=== PATIENT | male | born 1960 | race Two or more races ===

== ENCOUNTER 2018-12-05 15:38 | Inpatient (IN) | payer SELFPAY ==
[~2018-12-05] VITALS: Ht 185.4 cm; Wt 110.1 kg
[2018-12-05 19:51] LABS: Hemoglobin 8.4 g/dL (13.5-17.5); White Blood Cell 10.8 10^3/uL (4.4-10.8)
[2018-12-05 19:52] LABS: Basophils # (auto) 0.1 uL; Basophils % (auto) 1.2 % (0.0-2.0); Eosinophils # (auto) 0.7 uL; Eosinophils % (auto) 6.3 % (0.0-7.0); Hematocrit 28.3 % (41.0-53.0); Lymphocytes # (auto) 1.3 uL; Lymphocytes % (auto) 11.8 % (10.0-50.0); Mean Corpuscular Hemoglobin 19.1 pg (28.0-32.0); Mean Corpuscular Hgb Conc. 29.7 g/dL (32.0-36.0); Mean Corpuscular Volume 64.4 fL (80.0-100.0); Monocytes # (auto) 1.4 uL; Monocytes % (auto) 12.9 % (0.0-12.0); Neutrophils # (auto) 7.3 uL; Neutrophils % (auto) 67.8 % (37.0-80.0); Platelet Count (auto) 412 10^3/uL (140-450)
[2018-12-05 19:57] LABS: Red Cell Distribution Width 25.2 % (11.8-14.3)
[2018-12-05 20:02] LABS: INR 0.96 (0.9-1.15); Partial Thromboplastin Time 25.7 sec (23.78-33.04); Prothrombin Time 10.3 sec (9.27-12.13)
[2018-12-05 20:07] LABS: Albumin 3.3 g/dL (3.4-5.0); Calcium 8.8 mg/dL (8.5-10.1); Potassium 4.2 mmol/L (3.5-5.1)
[2018-12-05 20:11] LABS: BUN/Creatinine Ratio 22.3; Bilirubin, Total 0.7 mg/dL (0.2-1.0); Total Protein 8.2 g/dL (6.4-8.2)
[2018-12-05] MEDS ORDERED: IOHEXOL 350 MG/ML 100ML IJ ONE (22:12)
[2018-12-05] MEDS ORDERED: HYDROcodone-ACET 5/325MG TAB PO PRN (23:30)
[2018-12-05] MEDS ORDERED: ONDANSETRON HCL 4 MG/2 ML VIAL IV PRN (23:30)
[2018-12-05] MEDS ORDERED: TEMAZEPAM 15 MG CAP PO PRN (23:30)
[2018-12-05] MEDS ORDERED: cloNIDine HCL 0.1 MG TAB PO ONE (23:30)
[2018-12-06] MEDS ORDERED: MORPHINE SULFATE 4 MG/ML SYR/VIAL IV PRN ×2 (00:30)
[2018-12-06] MEDS ORDERED: NITROGLYCERIN 0.4 MG SL TAB SL PRN (00:30)
[2018-12-06] MEDS ORDERED: METOPROLOL TARTRATE 25 MG TAB PO ONE (03:00)
--- NOTE | 2018-12-06 07:50 | NUR ---
Telemetry admit from ER JAVYDAYANNA admitted to Telemetry unit Room 281A. No report received. Patient oriented to Adenike Pruitt, RN primary RN, unit, room, bed, and unit policies regarding patient care and visiting hours. Patient now on continuous telemetry monitoring, tele box #[id number] and telemetry reading on arrival to unit is SR 88. Patient placed on bedside oxygen, weighed by bedscale and encouraged to call if they need something. All questions and concerns addressed, patient verbalized understanding. Note:
--- NOTE | 2018-12-06 08:00 | NUR ---
PCP PATIENT STATED HE DOES NOT HAVE A PCP, PATIENT PROVIDED WITH CONTINUUM OF PICTURE COPYIST CARD AND ENCOURAGED TO CALL HER FOR ASSISTANCE IN ARRANGING NEW PCP.
[2018-12-06 08:13] LABS: Basophils # (auto) 0.2 uL
[2018-12-06 08:17] LABS: Basophils % (auto) 1.9 % (0.0-2.0); Eosinophils # (auto) 0.5 uL; Eosinophils % (auto) 6.4 % (0.0-7.0); Hematocrit 27.3 % (41.0-53.0); Hemoglobin 8.1 g/dL (13.5-17.5); Lymphocytes # (auto) 0.8 uL; Lymphocytes % (auto) 10.1 % (10.0-50.0); Mean Corpuscular Hemoglobin 19.3 pg (28.0-32.0); Mean Corpuscular Hgb Conc. 29.9 g/dL (32.0-36.0); Mean Corpuscular Volume 64.7 fL (80.0-100.0); Monocytes % (auto) 11.9 % (0.0-12.0); Neutrophils # (auto) 5.8 uL; Neutrophils % (auto) 69.7 % (37.0-80.0); Platelet Count (auto) 379 10^3/uL (140-450); Red Blood Cells 4.21 10^6/uL (4.5-5.90); White Blood Cell 8.3 10^3/uL (4.4-10.8)
[2018-12-06 08:24] LABS: Red Cell Distribution Width 24.2 % (11.8-14.3)
[2018-12-06 08:28] LABS: Potassium 4.1 mmol/L (3.5-5.1)
[2018-12-06 08:33] LABS: BUN/Creatinine Ratio 21.4; Calcium 8.7 mg/dL (8.5-10.1)
[2018-12-06 09:12] VITALS: BP 152/98
[2018-12-06 09:17] LABS: INR 0.98 (0.9-1.15); Partial Thromboplastin Time 25.1 sec (23.78-33.04); Prothrombin Time 10.5 sec (9.27-12.13)
[2018-12-06] MEDS: PANTOPRAZOLE 40 MG TAB PO SCH (09:42)
[2018-12-06] MEDS: METOPROLOL TARTRATE 25 MG TAB PO SCH ×2 (09:42→22:30)
[2018-12-06 12:22] VITALS: BP 147/105
--- NOTE | 2018-12-06 12:44 | NUR ---
Received call from CT that CT chest was ordered by Dr. Valerie Hill. CT can't be done until Saturday as the patient had A test with contrast on 12/05. Dr. Hill informed.
[2018-12-06 16:16] VITALS: BP 149/88
[2018-12-06] MEDS ORDERED: WARFARIN SODIUM 2.5 MG TAB PO ONE (17:00)
[2018-12-06 22:00] VITALS: BP 158/95
[2018-12-07] MEDS: ACETAMINOPHEN 500 MG TAB PO PRN ×2 (01:57→16:48)
[2018-12-07 05:00] VITALS: BP 135/93
[2018-12-07 05:51] LABS: Basophils # (auto) 0.2 uL; Eosinophils # (auto) 0.5 uL; Eosinophils % (auto) 6.6 % (0.0-7.0); Hemoglobin 7.6 g/dL (13.5-17.5); Mean Corpuscular Volume 65.4 fL (80.0-100.0); Monocytes # (auto) 0.9 uL; Monocytes % (auto) 11.1 % (0.0-12.0); White Blood Cell 8.2 10^3/uL (4.4-10.8)
[2018-12-07 05:54] LABS: Basophils % (auto) 2.3 % (0.0-2.0); Hematocrit 25.2 % (41.0-53.0); Lymphocytes # (auto) 0.9 uL; Lymphocytes % (auto) 11.6 % (10.0-50.0); Mean Corpuscular Hemoglobin 19.8 pg (28.0-32.0); Mean Corpuscular Hgb Conc. 30.3 g/dL (32.0-36.0); Neutrophils # (auto) 5.6 uL; Neutrophils % (auto) 68.4 % (37.0-80.0); Platelet Count (auto) 383 10^3/uL (140-450); Red Blood Cells 3.86 10^6/uL (4.5-5.90)
[2018-12-07 05:55] LABS: INR 1.01 (0.9-1.15); Prothrombin Time 10.8 sec (9.27-12.13)
[2018-12-07 05:58] LABS: Red Cell Distribution Width 24.6 % (11.8-14.3)
[2018-12-07 06:06] LABS: Albumin 2.9 g/dL (3.4-5.0); Calcium 8.5 mg/dL (8.5-10.1); Potassium 3.9 mmol/L (3.5-5.1)
[2018-12-07 06:11] LABS: % Iron Saturation 4.7 % (20-55)
[2018-12-07 06:12] LABS: BUN/Creatinine Ratio 18.6; Bilirubin, Total 0.7 mg/dL (0.2-1.0); Total Protein 7.2 g/dL (6.4-8.2)
--- NOTE | 2018-12-07 07:20 | NUR ---
Opening Shift Note Received report from Steve SULLIVAN. Assumed care of patient, awake and alert. No S/S of distress/SOB or pain. Reported pain on right leg when touch. Noted right leg swollen, warm to touch, palpable pulses on dorsalis pedis. Instructed on POC and to call for assist PRN, will continue to monitor for changes Q1hr and PRN.
[2018-12-07 08:00] VITALS: BP 150/81
[2018-12-07] MEDS: PANTOPRAZOLE 40 MG TAB PO SCH (08:22)
[2018-12-07] MEDS: SODIUM FERR GLUC 62.5MG/5ML 125 MG in SODIUM CHL 0.9% 100 ML IV SCH (09:25)
[2018-12-07] MEDS: METOPROLOL TARTRATE 25 MG TAB PO SCH ×2 (09:26→21:45)
[2018-12-07 12:00] VITALS: BP 145/92
--- NOTE | 2018-12-07 13:00 | NUR ---
COVERING NURSE LUIS F INFORMED PRIMARY NURSE THAT DR. Stacey CERVANTES WANTS THE PATIENT TO TRANSFER TO HIGHER LEVEL OF CARE AT [facility]. INFORMED ON-CALL WATCH AND CLOCK REPAIRER BY PHONE AND SAID THAT THEY WILL WORK ON IT TOMORROW.
[2018-12-07 16:00] VITALS: BP 118/77
--- NOTE | 2018-12-07 16:00 | NUR ---
DR. Zavala N at bedside. GI consult done. Received verbal order to have patient on CT guided biopsy tomorrow of liver mass. Npo after midnight, check for CBC and PTPTT as protocol.
[2018-12-07] MEDS ORDERED: WARFARIN SODIUM 2.5 MG TAB PO ONE (17:00)
[2018-12-07 18:24] LABS: INR 1.02 (0.9-1.15); Prothrombin Time 10.9 sec (9.27-12.13)
[2018-12-07 22:00] VITALS: BP 148/96
[2018-12-08] MEDS: ACETAMINOPHEN 500 MG TAB PO PRN ×3 (03:25→22:24)
[2018-12-08 05:36] VITALS: BP 151/81
[2018-12-08 06:00] LABS: INR 1.06 (0.9-1.15); Prothrombin Time 11.3 sec (9.27-12.13)
[2018-12-08 06:06] LABS: Albumin 2.7 g/dL (3.4-5.0); BUN/Creatinine Ratio 16.3; Calcium 8.3 mg/dL (8.5-10.1); Potassium 4.1 mmol/L (3.5-5.1)
[2018-12-08 06:09] LABS: Basophils # (auto) 0.2 uL; Basophils % (auto) 2.2 % (0.0-2.0); Bilirubin, Total 0.6 mg/dL (0.2-1.0); Eosinophils # (auto) 0.6 uL; Hematocrit 25.6 % (41.0-53.0); Hemoglobin 7.7 g/dL (13.5-17.5); Lymphocytes # (auto) 0.9 uL; Neutrophils # (auto) 5.7 uL; Total Protein 7.2 g/dL (6.4-8.2)
[2018-12-08 06:12] LABS: Eosinophils % (auto) 7.2 % (0.0-7.0); Lymphocytes % (auto) 10.4 % (10.0-50.0); Mean Corpuscular Hemoglobin 19.5 pg (28.0-32.0); Mean Corpuscular Volume 65.1 fL (80.0-100.0); Monocytes % (auto) 12.5 % (0.0-12.0); Neutrophils % (auto) 67.7 % (37.0-80.0); Platelet Count (auto) 402 10^3/uL (140-450); Red Blood Cells 3.93 10^6/uL (4.5-5.90); White Blood Cell 8.4 10^3/uL (4.4-10.8)
[2018-12-08 06:13] LABS: Red Cell Distribution Width 24.9 % (11.8-14.3)
--- NOTE | 2018-12-08 07:25 | NUR ---
Opening Shift Note Received report from Steve SULLIVAN. Assumed care of patient, awake and alert. No S/S of distress/SOB or pain. REported pain on right lower leg when touched. Instructed on POC and to call for assist PRN, will continue to monitor for changes Q1hr and PRN.
[2018-12-08] MEDS: PANTOPRAZOLE 40 MG TAB PO SCH (07:52)
[2018-12-08 08:00] VITALS: BP 149/105
--- NOTE | 2018-12-08 08:29 | NUR ---
CALLED CT AND SAID THAT THEY WILL DO THE BIOPSY TODAY, NO DEFINITE TIME YET. PATIENT MADE AWARE AND VERBALIZED UNDERSTANDING.
[2018-12-08 08:46] VITALS: BP 149/105
[2018-12-08] MEDS: METOPROLOL TARTRATE 25 MG TAB PO SCH ×2 (09:19→21:30)
[2018-12-08] MEDS ORDERED: IOHEXOL 300 MG/ML 100ML BOTTLE IJ ONE (09:30)
--- NOTE | 2018-12-08 09:32 | NUR ---
SPOKE WITH [facility] MCDANIEL TO REQUEST INTERVIEW WITH PATIENT FOR POSSIBLE [facility] APPLICATION. [facility] WILL SPEAK WITH PATIENT TODAY. SPOKE WITH MEGGAN SULLIVAN TO INFORM HER THAT PATIENT HAS NO INSURANCE AND TO PLEASE SPEAK WITH PHYSICIAN WHEN ROUNDS ARE MADE AND MAKE THEM AWARE OF THAT. TRANSFER TO HIGHER LEVEL WILL BE DIFFICULT. Addendum: 12/08/18 at 1427 by Rock Dumont RN PER [facility] PATIENT IS MEDI-[facility] PENDING
[2018-12-08 10:03] LABS: Hepatitis B Surface Antibody Negative
[2018-12-08 10:08] LABS: Folate (Folic Acid) 17.92 ng/mL (5.38-24)
[2018-12-08 10:35] LABS: Hepatitis A Total Antibody Negative
[2018-12-08 11:28] LABS: Hepatitis B Core Total AB Negative; Hepatitis C Antibody Negative (Negative)
[2018-12-08 11:29] LABS: Hepatitis B Surface Antigen Negative (Negative)
--- NOTE | 2018-12-08 11:38 | NUR ---
PATIENT ASSISTED TO CT FOR BIOPSY, TAKEN BY BED.
--- NOTE | 2018-12-08 11:45 | NUR ---
[facility] WILL HOLD THIS TIME, PATIENT STILL AT CT.
[2018-12-08] MEDS ORDERED: LIDOCAINE 2% (LOCAL ANESTH.) PF 5ml SDV ONE (12:27)
--- NOTE | 2018-12-08 12:49 | NUR ---
CAN'T ASSESS, PATIENT STILL AT RADIOLOGY. Addendum: 12/08/18 at 1249 by ELAINE ORDONEZ RN Amended: Links added.
--- NOTE | 2018-12-08 13:00 | NUR ---
PT NOT IN ROOM DURING 1300 VITALS . UNABLE TO OBTAIN.
[2018-12-08] MEDS ORDERED: MIDAZOLAM HCL 1MG/1ML-2 ML VIAL ONE (13:44)
[2018-12-08] MEDS ORDERED: fentaNYL CITRATE 100 MCG/2 ML VL ONE (13:44)
[2018-12-08] MEDS: SODIUM FERR GLUC 62.5MG/5ML 125 MG in SODIUM CHL 0.9% 100 ML IV SCH (16:20)
[2018-12-08 17:00] VITALS: BP 153/88
[2018-12-08] MEDS ORDERED: WARFARIN SODIUM 2.5 MG TAB PO ONE (17:00)
--- NOTE | 2018-12-08 19:30 | NUR ---
Opening Shift Note Assumed care of patient, awake and alert. No S/S of distress/SOB or pain. Instructed on POC and to call for assist when needed. Pt has a 20ga IV in the right forearm that flushes without discomfort. Pt currently laying in bed with the rails up x2, bed is locked in the lowest position and the call light is within reach. Will continue to monitor.
[2018-12-08 21:56] VITALS: BP 146/85
--- NOTE | 2018-12-09 01:15 | NUR ---
IV insertion IV access obtained, via clean sterile technique by inserting 20 gauge catheter in the left forearm after 1 attempt. IV secured properly. No trauma to site. Patient tolerated procedure well.
[2018-12-09 04:58] VITALS: BP 154/94
[2018-12-09 06:16] LABS: Eosinophils # (auto) 0.5 uL; Eosinophils % (auto) 6.9 % (0.0-7.0); Hematocrit 25.7 % (41.0-53.0); Lymphocytes # (auto) 0.8 uL
[2018-12-09 06:20] LABS: Basophils # (auto) 0.1 uL; Basophils % (auto) 1.8 % (0.0-2.0); Hemoglobin 7.7 g/dL (13.5-17.5); Lymphocytes % (auto) 10.8 % (10.0-50.0); Mean Corpuscular Hemoglobin 19.6 pg (28.0-32.0); Mean Corpuscular Hgb Conc. 29.7 g/dL (32.0-36.0); Mean Corpuscular Volume 65.9 fL (80.0-100.0); Monocytes # (auto) 0.8 uL; Monocytes % (auto) 11.3 % (0.0-12.0); Neutrophils % (auto) 69.2 % (37.0-80.0); Nucleated Red Blood Cells % 0.1 %; Platelet Count (auto) 359 10^3/uL (140-450); White Blood Cell 7.2 10^3/uL (4.4-10.8)
[2018-12-09] MEDS: ACETAMINOPHEN 500 MG TAB PO PRN ×2 (06:26→17:52)
[2018-12-09 06:36] LABS: INR 1.1 (0.9-1.15); Prothrombin Time 11.7 sec (9.27-12.13); Red Cell Distribution Width 25.1 % (11.8-14.3)
[2018-12-09 06:37] LABS: Potassium 4.1 mmol/L (3.5-5.1)
[2018-12-09 06:44] LABS: BUN/Creatinine Ratio 17.6; Bilirubin, Total 0.7 mg/dL (0.2-1.0); Calcium 8.2 mg/dL (8.5-10.1)
[2018-12-09 06:47] LABS: Albumin 2.7 g/dL (3.4-5.0)
[2018-12-09 08:00] VITALS: BP 145/92
[2018-12-09] MEDS: PANTOPRAZOLE 40 MG TAB PO SCH (08:48)
[2018-12-09 08:55] LABS: Urine Bacteria NONE SEEN /hpf (None Seen); Urine Blood Negative /uL (Negative); Urine Specific Gravity 1.017 (1.001-1.035); Urine WBC 3 /hpf (0 - 3)
[2018-12-09 09:00] VITALS: BP 145/92
[2018-12-09] MEDS: METOPROLOL TARTRATE 25 MG TAB PO SCH ×2 (10:00→22:42)
[2018-12-09 13:00] VITALS: BP 138/95
--- NOTE | 2018-12-09 15:17 | NUR ---
Nutrition Assessment Notes please see attached link for complete assessment Est. Needs ABW [id number] kcal (23-25 kcal/kgBW), 96-105 gms pro (1.0-1.1 gms/kgBW). Will continue to monitor pertinent labs and reassess nutrient needs prn Addendum: 12/09/18 at [address] Amended: Links added.
[2018-12-09 17:00] VITALS: BP 121/80
[2018-12-09] MEDS ORDERED: WARFARIN SODIUM 10 MG TAB PO ONE (17:00)
[2018-12-09] MEDS: SODIUM FERR GLUC 62.5MG/5ML 125 MG in SODIUM CHL 0.9% 100 ML IV SCH (17:13)
--- NOTE | 2018-12-09 19:15 | NUR ---
OPENING SHIFT NOTE ASSUMED CARE OF PATIENT FROM DEANDRE SULLIVAN. PATIENT IS RESTING IN BED WITH EVEN AND UNLABORED RESPIRATIONS. FAMILY IS AT BEDSIDE. PATIENT REPORTS NO PAIN AT THIS TIME. BED IS LOW, LOCKED, CALL LIGHT IS IN REACH, AND SIDE RAILS UP X2. INSTRUCTED ON POC AND TO CALL FOR ASSIST PRN. WILL CONTINUE TO MONITOR.
[2018-12-09 22:00] VITALS: BP 138/102
--- NOTE | 2018-12-10 01:02 | NUR ---
HOSPITALIST SPOKE WITH Niki MÁRQUEZ REPORTED THAT PATIENTS RIGHT MID UPPER ARM IS WARM, RED, AND PAINFUL WITH A LUMP. PATIENT STATES THAT HE DEVELOPED IT EARLIER IN THE DAY AFTER AN IV WAS TAKEN OUT. NEW ORDER RECEIVED FOR RDVT UPPER EXTREMITY US TO RULE OUT DVT. WILL CONTINUE TO MONITOR.
--- NOTE | 2018-12-10 04:05 | NUR ---
HOSPITALIST PAGED TO NOTIFY OF RDVT US STUDY
[2018-12-10 05:53] VITALS: BP 151/85
[2018-12-10 06:16] LABS: Potassium 3.9 mmol/L (3.5-5.1)
[2018-12-10 06:20] LABS: BUN/Creatinine Ratio 15.4; Calcium 8.3 mg/dL (8.5-10.1)
[2018-12-10] MEDS: PANTOPRAZOLE 40 MG TAB PO SCH ×2 (06:38→09:27)
[2018-12-10 06:40] LABS: INR 1.21 (0.9-1.15); Prothrombin Time 12.8 sec (9.27-12.13)
--- NOTE | 2018-12-10 06:45 | NUR ---
HOSPITALIST RETURNED CALL Dr. MÁRQUEZ returned call, updated on patient status and reason for call, NO NEW orders received AT THIS TIME. Continue care.
--- NOTE | 2018-12-10 07:00 | NUR ---
CLOSING SHIFT NOTE TRANSFERRED CARE TO DAY SHIFT RN. PATIENT IS AWAKE AND ALERT WITH EVEN AND UNLABORED RESPIRATIONS. NO S/S OF DISTRESS OR PAIN AT TIME. SIDE RAILS UP X2, CALL LIGHT IN REACH, BED LOW AND LOCKED.
[2018-12-10 08:00] VITALS: BP 127/81
[2018-12-10 08:28] VITALS: BP 127/81
[2018-12-10] MEDS: METOPROLOL TARTRATE 25 MG TAB PO SCH (09:28)
--- NOTE | 2018-12-10 09:30 | NUR ---
MD ROUNDS ONCOLOGIST AT BEDSIDE, NO NEW ORDERS PLACED
[2018-12-10] MEDS ORDERED: CYANOCOBALAMIN 500 MCG TAB PO SCH (10:00)
[2018-12-10 12:16] VITALS: BP 137/84
--- NOTE | 2018-12-10 14:30 | NUR ---
MD ROUNDS DR. CERVANTES AT BEDSIDE TO DISCUSS POC WITH PT
--- NOTE | 2018-12-10 16:00 | NUR ---
AMA Note DAYANNA PALAFOX states they want to leave the hospital Against Medical Advice (AMA). RONALD CERVANTES MD notified of patient's wishes. Patient advised of the risks and benefits of leaving AMA. Patient verbalized understanding. Patient encouraged to return to the ER if symptoms do not improve or worsen. Patient IV was DC'd intact and a pressure dressing was applied, tele box was removed and returned to PEGGY. Patient was taken via wheelchair to personal vehicle of family member who was present, patient was in no apparent distress.
[2018-12-10] MEDS ORDERED: WARFARIN SODIUM 10 MG TAB PO ONE (17:00)
== END 2018-12-10 16:00 | disposition left against medical advice (07) | DRG 478 ==
LOC: ER 15:48 → TELE 12-06 00:16 → TELE-WESTW 12-06 08:25
PROVIDERS: ADMIT Nurse Practitioner Family; ATTEND Family Medicine
PROC: 0QB23ZX Excision of Right Pelvic Bone, Percutaneous Approach, Diagnostic (ICD-10-PCS; principal; 2018-12-08)
DX: C79.51 Secondary malignant neoplasm of bone (principal); C78.7 Secondary malignant neoplasm of liver and intrahepatic bile duct; B19.10 Unspecified viral hepatitis B without hepatic coma; I82.611 Acute embolism and thrombosis of superficial veins of right upper extremity; I82.411 Acute embolism and thrombosis of right femoral vein; I82.431 Acute embolism and thrombosis of right popliteal vein; R19.09 Other intra-abdominal and pelvic swelling, mass and lump; D63.8 Anemia in other chronic diseases classified elsewhere; D50.9 Iron deficiency anemia, unspecified; Z53.21 Procedure and treatment not carried out due to patient leaving prior to being seen by health care provider; I10 Essential (primary) hypertension; Z86.718 Personal history of other venous thrombosis and embolism; Z90.49 Acquired absence of other specified parts of digestive tract
CPT/HCPCS: 10022; 36415; 71045; 71260; 72192; 75635; 76705; 77012; 80048; 80053; 81001; 82378; 82607; 82728; 82746; 83540; 83550; 84154; 85025; 85610; 85730; 86301; 86704; 86706; 86708; 86803; 87081; 87340; 93971; 94761; 96365; A6257; G0378; J2001; J2250

== ENCOUNTER 2019-05-27 21:19 | Emergency (ER) | payer MEDICAID ==
[~2019-05-27] VITALS: Ht 185.4 cm; Wt 116.6 kg
[~2019-05-27 21:19] MED LIST: DEXA4TAB PO; HYDR-4833 PO; METO25TA62 PO
[2019-05-28 01:30] VITALS: BP 134/82
[2019-05-28] MEDS ORDERED: BACITRACIN TOP OINT 1 UD PKG TOP ONE (02:45)
== END 2019-05-28 03:12 | disposition home or self-care (01) ==
LOC: ER 21:20
DX: S90.121A Contusion of right lesser toe(s) without damage to nail, initial encounter (principal); I10 Essential (primary) hypertension; Z79.899 Other long term (current) drug therapy; Z90.49 Acquired absence of other specified parts of digestive tract; W22.8XXA Striking against or struck by other objects, initial encounter; Y93.89 Activity, other specified; Y99.8 Other external cause status; Y92.89 Other specified places as the place of occurrence of the external cause
CPT/HCPCS: 73630

== ENCOUNTER 2019-06-29 11:10 | Inpatient (IN) | payer MEDICAID ==
[~2019-06-29] VITALS: Ht 182.9 cm; Wt 122.4 kg
[2019-06-29 11:59] LABS: Basophils # (auto) 0 uL; Eosinophils # (auto) 0 uL; Hematocrit 30.3 % (41.0-53.0); Hemoglobin 9.3 g/dL (13.5-17.5); Mean Corpuscular Hemoglobin 30.4 pg (28.0-32.0); Mean Corpuscular Hgb Conc. 30.6 g/dL (32.0-36.0); Monocytes # (auto) 0.4 uL; Nucleated Red Blood Cells % 0.3 %; Red Blood Cells 3.05 10^6/uL (4.5-5.90)
[2019-06-29 12:02] LABS: Basophils % (auto) 0.2 % (0.0-2.0); Eosinophils % (auto) 0.5 % (0.0-7.0); Lymphocytes # (auto) 0.7 uL; Lymphocytes % (auto) 11.9 % (10.0-50.0); Mean Corpuscular Volume 99.3 fL (80.0-100.0); Monocytes % (auto) 6.8 % (0.0-12.0); Neutrophils # (auto) 4.8 uL; Neutrophils % (auto) 80.6 % (37.0-80.0); Platelet Count (auto) 209 10^3/uL (140-450); Red Cell Distribution Width 18.7 % (11.8-14.3)
[2019-06-29 12:16] LABS: Albumin 2.4 g/dL (3.4-5.0); Calcium 9.2 mg/dL (8.5-10.1); Potassium 4.7 mmol/L (3.5-5.1)
[2019-06-29 12:18] LABS: BUN/Creatinine Ratio 25.4
[2019-06-29 12:32] LABS: Bilirubin, Total 2.8 mg/dL (0.2-1.0)
[2019-06-29] MEDS ORDERED: NITROGLYCERIN 0.4 MG SL TAB SL PRN (13:45)
[2019-06-29] MEDS ORDERED: MORPHINE SULF INJ 2 MG/ML SYRINGE 1ML IV PRN (13:45)
[2019-06-29] MEDS ORDERED: HYDROmorphone HCL 2 MG/ML VL IV PRN (13:45)
--- NOTE | 2019-06-29 14:44 | NUR ---
MS admit from ER DAYANNA PALAFOX admitted to tele/MS after SBAR received. Patient oriented to Elly Frye RN primary RN, unit, room, bed, and unit policies regarding patient care and visiting hours. Patient weighed by bedscale and encouraged to call if they need something. All questions and concerns addressed, patient verbalized understanding.
[2019-06-29 15:02] LABS: INR 1.05 (0.9-1.15)
[2019-06-29 15:15] VITALS: BP 111/72
[2019-06-29] MEDS: ONDANSETRON HCL 4 MG/2 ML VIAL IV PRN (15:28)
[2019-06-29] MEDS: HYDROmorphone HCL 2 MG/ML VL IV PRN (15:28)
[2019-06-29] MEDS ORDERED: SENN1TAB14 PO (15:44)
[2019-06-29] MEDS ORDERED: TRAM50TA2 PO (15:44)
[2019-06-29] MEDS ORDERED: MORP60TA25 PO (15:44)
[2019-06-29] MEDS ORDERED: RIVA10TA PO (15:44)
[2019-06-29] MEDS ORDERED: METO25TA62 PO (15:44)
--- NOTE | 2019-06-29 15:46 | NUR ---
SPOKE TO ENDOCRINOLOGY TEACHER SPOKE TO FELIPE PARNELL REGARDING HOME DOSE OF XARELTO AND NO ORDERED ANTICOAGULANTS. ENDOCRINOLOGY TEACHER STATING HE WILL REVIEW PATIENTS CHART. Addendum: 06/29/19 at 1634 by Elly Frye RN RN ENDOCRINOLOGY TEACHER STATING MENG ORIGINALLY HELD R/T POSSIBLE PARACENTESIS. ENDOCRINOLOGY TEACHER STATING HE WILL REVIEW US AND PLACE ORDERS.
[2019-06-29 16:30] VITALS: BP 109/68
[2019-06-29] MEDS: FUROSEMIDE 40 MG/4 ML VIAL IV SCH (17:23)
--- NOTE | 2019-06-29 18:44 | NUR ---
ROUNDS PT AMBULATED TO RESTROOM AND RETURNED TO BED W/O INCIDENT. DISCUSSED WITH PT PENDING UA AND PT VERBALIZED UNDERSTANDING. LABELED SPECIMEN CUP LEFT AT BEDSIDE. PT DENIED ANY NEEDS AT THIS TIME. RE-ENCOURAGED PT TO CONTACT STAFF FOR PRN ASSISTANCE. CALL LIGHT WITHIN REACH.
[2019-06-29] MEDS ORDERED: MORP1TAB12 PO (18:48)
--- NOTE | 2019-06-29 19:05 | NUR ---
OPENING NOTE- NOC SHIFT PATIENT IS ALERT AND ORIENTED X4, ANSWERS IN COMPLETE SENTENCES AND MAKES APPROPRIATE EYE CONTACT. PATIENT STATES THAT FAMILY MEMBER AT BEDSIDE IS HIS COUSIN. PATIENT IS IN BED, BED IS LOCKED IN LOWEST POSITION, BED RAILS UP X2, BEDSIDE TABLE WITHIN REACH, PERSONAL BELONGINGS WITHIN REACH, CALL LIGHT WITHIN REACH. DISCUSSED POC WITH PATIENT AND INSTRUCTED PATIENT TO CALL PRN; PATIENT VERBALIZED UNDERSTANDING. WILL CONTINUE TO MONITOR Q1H AND PRN. PATIENT AND FAMILY MEMBER ARE AWARE OF HOSPITAL VISITING HOURS.
--- NOTE | 2019-06-29 19:07 | NUR ---
PENDING TROPONIN DRAW CALLED LAB RE: PENDING TROPONIN DRAW. SPOKE TO SKINNY. STATING SHE WILL SEND [employer] INSTRUMENT REPAIRER TO DRAW.
--- NOTE | 2019-06-29 19:35 | NUR ---
PATIENT AMBULATED TO RESTROOM. GAIT IS STEADY. PATIENT REPORTS FATIGUE AND PAIN 9/10 WITH AMBULATION. BEDSIDE COMMODE IS AT BEDSIDE. UA CUP IS AT BEDSIDE; MADE PATIENT AWARE THAT URINE COLLECTION IS ORDERED.
[2019-06-29 20:05] VITALS: BP 128/75
[2019-06-29 21:40] VITALS: BP 128/75
[2019-06-29] MEDS: MORPHINE SULF 30 mg ER tab PO SCH (22:18)
[2019-06-29] MEDS: METOPROLOL TARTRATE 25 MG TAB PO SCH (22:19)
[2019-06-30 04:31] VITALS: BP 106/59
[2019-06-30 06:06] LABS: Partial Thromboplastin Time 28.6 sec (23.64-32.05)
[2019-06-30 06:12] LABS: Albumin 2.4 g/dL (3.4-5.0); Calcium 8.9 mg/dL (8.5-10.1); Potassium 4.4 mmol/L (3.5-5.1)
[2019-06-30 06:16] LABS: BUN/Creatinine Ratio 25.2; Basophils # (auto) 0 uL; Basophils % (auto) 0.1 % (0.0-2.0); Eosinophils # (auto) 0 uL; Eosinophils % (auto) 0.6 % (0.0-7.0); Hematocrit 30.1 % (41.0-53.0); Hemoglobin 9.2 g/dL (13.5-17.5); Lymphocytes # (auto) 0.3 uL; Mean Corpuscular Hemoglobin 30.7 pg (28.0-32.0); Mean Corpuscular Hgb Conc. 30.6 g/dL (32.0-36.0); Mean Corpuscular Volume 100.1 fL (80.0-100.0); Monocytes # (auto) 0.5 uL; Monocytes % (auto) 8.9 % (0.0-12.0); Neutrophils # (auto) 4.8 uL; Neutrophils % (auto) 84.4 % (37.0-80.0); Nucleated Red Blood Cells % 0.6 %; Platelet Count (auto) 218 10^3/uL (140-450); Red Blood Cells 3.01 10^6/uL (4.5-5.90); Red Cell Distribution Width 18.3 % (11.8-14.3); Total Protein 6.1 g/dL (6.4-8.2); White Blood Cell 5.7 10^3/uL (4.4-10.8)
[2019-06-30] MEDS: HYDROmorphone HCL 2 MG/ML VL IV PRN ×3 (06:44→17:58)
[2019-06-30] MEDS: ONDANSETRON HCL 4 MG/2 ML VIAL IV PRN (06:44)
[2019-06-30] MEDS: FUROSEMIDE 40 MG/4 ML VIAL IV SCH ×2 (06:45→17:59)
--- NOTE | 2019-06-30 07:10 | NUR ---
ENDORSED PATIENT CARE TO DAY SHIFT NURSE BLANKA SULLIVAN. PATIENT IS RESTING IN BED. NO S/SX OF DISTRESS.
--- NOTE | 2019-06-30 07:15 | NUR ---
Opening Shift Note Received report and assumed care of patient, awake,alert and oriented,eating breakfast still c/o pain despite pain medication given earlier,encouraged to relax and ice pack offered. No S/S of distress/SOB. Instructed on POC and nursing routines,call light within reach,patient reminded instructed to call for assistance.will continue to monitor for changes Q1hr and PRN.
[2019-06-30 09:00] VITALS: BP 120/80
[2019-06-30] MEDS ORDERED: PANTOPRAZOLE 40 MG TAB PO SCH (10:00)
[2019-06-30] MEDS: MORPHINE SULF 30 mg ER tab PO SCH (10:35)
[2019-06-30] MEDS: METOPROLOL TARTRATE 25 MG TAB PO SCH (10:37)
--- NOTE | 2019-06-30 12:15 | NUR ---
PATIENT C/O SEVERE PAIN REQUESTING FOR DILAUDID,EXPLAIN TO PATIENT ITS Q 6 HOURS BUT WILL CALL MD FOR ORDER.DR. DIEHL INFORMED RECEIVED ORDER TO INCREASE DILAUDID TO Q4 HOURS
--- NOTE | 2019-06-30 12:30 | NUR ---
DR. DIEHL HERE,PATIENT SISTERS X2 AT BEDSIDE,HAD A CONFERENCE WITH DR. DIEHL RE PLAN OF CARE DECIDED PATIENT WILL BE DISCHARGE AND RETURN TO HOME UNDER HOSPICE CARE.
--- NOTE | 2019-06-30 12:40 | NUR ---
Nutrition consult/assessment Notes please see attached link for complete assessment Est. Needs IBW (81 kg): [id number] kcal (25-30 kcal/kgBW), 64-81 gms pro (0.8-1.0 gms/kgBW r/t elev RFT). Will continue to monitor pertinent labs and reassess nutrient need prn Addendum: 06/30/19 at [address] Amended: Links added.
[2019-06-30 12:51] VITALS: BP 120/80
[2019-06-30 13:00] VITALS: BP 105/63
--- NOTE | 2019-06-30 14:53 | NUR ---
SPOKE TO JAVID BODY SHOP FLOORPERSON RE HOSPICE DISCHARGE,PER JAVID AWARE AND ALREADY INFORMED [facility]
--- NOTE | 2019-06-30 15:54 | NUR ---
Discharge planning per consult, patient has orders to resume hospice services with [facility]. Referral faxed, placed a follow up call and spoke with Rajesh at [facility] and was advised that they will resume services with this patient. The General transportation will come between 6-7pm to transport patient home. His sister Connie and nurse NATE Silver were advised of the discharge plan and verbalized understanding. Addendum: 06/30/19 at 1557 by JAVID GARRETT Amended: Links added.
[2019-06-30 17:00] VITALS: BP 107/64
--- NOTE | 2019-06-30 17:30 | NUR ---
Discharge instructions given to daughter as ordered, All questions and concerns addressed. verbalized understanding. Medication reconciliation form completed and copy given to patient daughter.
[2019-06-30] MEDS ORDERED: RIVAROXABAN 20 MG TAB PO SCH (18:00)
--- NOTE | 2019-06-30 18:45 | NUR ---
IV removed with catheter intact, pressure dressing applied, Patient taken to vehicle via gurney with all personal belongings, accompanied by staff and family member. No distress noted at time of departure.patient discharge to home under [facility] care.Transported by general transport.
== END 2019-06-30 18:46 | disposition hospice, home (50) | DRG 343 ==
LOC: ER 11:10 → EDBD 11:10 → OVERFLOW 11:11 → WEST WING 14:44
PROVIDERS: ADMIT Nurse Practitioner Acute Care; ATTEND Internal Medicine
DX: C79.51 Secondary malignant neoplasm of bone (principal); C49.21 Malignant neoplasm of connective and soft tissue of right lower limb, including hip; C78.7 Secondary malignant neoplasm of liver and intrahepatic bile duct; E87.2 Acidosis; E44.0 Moderate protein-calorie malnutrition; N18.3 Chronic kidney disease, stage 3 (moderate); I82.501 Chronic embolism and thrombosis of unspecified deep veins of right lower extremity; I12.9 Hypertensive chronic kidney disease with stage 1 through stage 4 chronic kidney disease, or unspecified chronic kidney disease; K21.9 Gastro-esophageal reflux disease without esophagitis; D50.9 Iron deficiency anemia, unspecified; Z82.49 Family history of ischemic heart disease and other diseases of the circulatory system; Z80.3 Family history of malignant neoplasm of breast; Z79.899 Other long term (current) drug therapy; Z68.36 Body mass index [BMI] 36.0-36.9, adult
CPT/HCPCS: 36415; 76705; 80053; 82105; 84484; 85025; 85610; 85730; 93005; G0378; J2405